=== PATIENT | female | born 1995 | race African-American/Black ===

== ENCOUNTER 2024-03-26 17:23 | Emergency (ER) | payer BC, SELFPAY ==
--- NOTE | ~2024-03-26 | CT_ITS ---
EXAMINATION: CT abdomen pelvis w con DATE: 03/26/2024 19:02 INDICATION: Abdominal pain. TECHNIQUE: Computed tomography (CT) of the abdomen and pelvis was performed with 100 mL Omnipaque 350 intravenous contrast. Automated exposure control and iterative reconstruction technique were employe d. The dose-length product was 839.50 mGy-cm. COMPARISON: None. FINDINGS: The visualized portions of lung bases demonstrate mild atelectasis in the left. No pleural effusion. The heart size is normal. No pericardial effusion. The liver, gallbladder, spleen, pancreas , and adrenal glands are normal. There is urothelial thickening and enhancement involving the ureters , consistent with pyelitis. There are no dilated loops of bowel. The appendix is normal. There are no pathologically enlarged lymph nodes. There is physiologic fluid in the pelvis. There is mild thoraci c and lumbar spondylosis. IMPRESSION: 1. Bilateral pyelitis. Reviewed, dictated and finalized at location A. IMPRESSION: 1. Bilateral pyelitis.
[2024-03-26 17:27] VITALS: BP 110/80; PULSE 80; RESP 16; TEMP 36.8; O2SAT 99
[2024-03-26 17:39] VITALS: BP 154/92; O2SAT 100
[2024-03-26 17:46] VITALS: BP 145/100; O2SAT 99
[2024-03-26 17:50] LABS: Add Urine Microscopic? YES; Appearance Urine Clear (Clear); Bacteria Urine 1+ /hpf; Bilirubin Urine Negative (Negative); Blood Urine Negative (Negative); Color Urine Yellow (Yellow); Glucose Urine UA Negative (Negative); Ketones Urine Negative (Negative); Leukocyte Esterase Ur 1+ LEU/UL (Negative); Nitrate Urine Negative (Negative); Non Pathogenic Casts 0-2; Protein Urine Negative (Negative); RBC Urine 0-2 /hpf (0-2); Specific Grav Ur 1.009 (1.001-1.035); Squamous Epithelial Cell Urine None Seen /hpf (Few)
[2024-03-26 18:01] VITALS: BP 146/88; O2SAT 100
[2024-03-26] MEDS: SODIUM CHLORIDE 0.9% IV 1,000 ML 150 ML IV CONT (18:08)
[2024-03-26 18:12] LABS: Basophils Percent Auto 0.4 % (0.2-1.2); Eosinophils Percent Auto 0.2 % (0-4.4); Hematocrit 37.7 % (37.0-47.0); Hemoglobin 13.3 g/dL (12.0-15.0); Immature Granulocyte Absolute 0.04 K/mm3 (0.00-0.031); Immature Granulocyte Percent A 0.4 % (0-0.5); Lymphocytes Absolute Auto 1.39 K/mm3 (0.9-3.2); Lymphocytes Percent Auto 12.7 % (18.3-44.2); Mean Corpuscular HGB Conc 35.3 g/dl (32-36); Mean Corpuscular Hemoglobin 31.6 pg (26-34); Mean Corpuscular Volume 89.5 fl (80-100); Mean Platelet Volume 10.8 fl (7.4-10.4); Monocytes Absolute Auto 1.3 K/mm3 (0.1-0.6); Monocytes Percent Auto 11.6 % (2.6-8.5); Neutrophils Absolute Auto 8.2 K/mm3 (1.3-6.7); Neutrophils Percent Auto 74.7 % (45.5-73.1); Platelet Count Result 228 k/mm3 (150-375); Red Blood Count 4.21 M/mm3 (4.2-5.4); Red Cell Distribution Width 12.2 % (11.5-14.5)
[2024-03-26 18:16] VITALS: BP 130/78; O2SAT 100
[2024-03-26 18:22] LABS: Alanine Aminotransferase 19 U/L (6-35); Albumin Level 4.3 g/dL (3.5-5.1); Alkaline Phosphatase 65 U/L (38-126); Anion Gap 10 mmol/L (4-12); Aspartate Amino Transferase 27 U/L (14-36); Bilirubin,Total 0.6 mg/dL (0.2-1.3); Blood Urea Nitrogen 7 mg/dL (7-17); Calcium 8.9 mg/dL (8.4-10.2); Carbon Dioxide 28 mmol/L (22-30); Chloride 97 mmol/L (98-107); Estimated CRCL calculation 110 ml/min; Estimated Glomerular Filt Rate > 60; Glucose 93 mg/dL (65-110); Lipase 51 U/L (23-300); Potassium 3.6 mmol/L (3.4-5.0); Sodium 135 mmol/L (137-145)
[2024-03-26 18:40] LABS: Beta HCG Quantitative < 2.39 mIU/ML
[2024-03-26 18:46] VITALS: BP 149/92; O2SAT 100
--- NOTE | 2024-03-26 19:21 | ED.ABDPAIN ---
HPI - Abdominal Pain General Chief Complaint: Abdominal Pain Stated Complaint: Lower abdominal pain Time Seen by Provider: 03/26/24 17:34 Source: patient Mode of arrival: ambulatory Limitations: no limitations History of Present Illness HPI narrative: 28-year-old otherwise healthy here with the complaints of lower abdominal pain which started this morning. She denies any nausea or vomiting. No history of fever or chills. Denies any urinary symptoms. Pertinent past history: none Onset (ago): day(s) (1) Pain Consistency: constant Location: diffuse Severity: moderate Quality: aching Radiation: none Exacerbating factors: nothing Relieving factors: nothing Related Data Patient : No Allergies Allergy/AdvReac Type Severity Reaction Status Date / Time ibuprofen Allergy Hives Verified 03/26/24 18:01 Review of Systems Review of Systems: All systems reviewed & are unremarkable except as noted in HPI and below Constitutional: Constitutional: Reports no additional constitutional complaints Eyes: Eyes: Reports no additional eye complaints ENT: Reports system reviewed and no additional complaints, except as documented Cardiovascular: Cardiovascular: Reports no additional cardiovascular complaints Respiratory: Respiratory: Reports no additional respiratory complaints Gastrointestinal: Gastrointestinal: Reports as per HPI Genitourinary: Genitourinary: Reports no additional female genitourinary complaints Musculoskeletal: Musculoskeletal: Reports no additional musculoskeletal complaints Exam Narrative: GENERAL: Well-appearing, well-nourished, and in no acute distress. HEAD: Normocephalic, atraumatic. EYES: PERRLA and EOMI. ENT: Nares clear, no rhinorrhea or epistaxis. Mucous membranes moist. NECK: Supple. CHEST: Clear to auscultation. No respiratory distress. HEART: Regular rate and rhythm. No murmur heard. Normal peripheral pulses. ABDOMEN: Soft, nontender, nondistended, normal active bowel sounds. EXTREMITIES: Normal range of motion. No edema. SKIN: Warm, dry, no rash. NEURO: No focal deficits. Alert and oriented x3. PSYCH: Normal mood and affect. Course Course Emergency Course: Patient is in no acute distress abdomen is soft no rebound did inform her about the lab work, CT findings advised to take antibiotic as prescribed. Vital Signs Vital signs: Vital Signs Temperature 36.8 C 03/26/24 17:27 Pulse Rate 80 03/26/24 17:27 Respiratory Rate 16 03/26/24 17:27 Blood Pressure 110/80 03/26/24 17:27 Pulse Oximetry 99 03/26/24 17:27 Oxygen Delivery Room Air 03/26/24 17:27 Temperature 36.8 C 03/26/24 17:27 Pulse Rate 80 03/26/24 17:27 Respiratory Rate 16 03/26/24 17:27 Blood Pressure 149/92 H 03/26/24 18:46 Pulse Oximetry 100 03/26/24 18:46 Oxygen Delivery Room Air 03/26/24 17:27 MDM - Abdominal Pain MDM Narrative Medical decision making narrative: 28-year-old otherwise healthy here with a lesion diffuse abdominal pain that started this morning denies urinary symptoms. Will do abdominal workup including CT. Differential Diagnosis Differential diagnosis: Likely abdominal pain, calculus of kidney, gastroenteritis and other (uti) Medical Records Attestation: I reviewed the patient's medical records. Lab Data Attestation: I reviewed the patient's lab results. 03/26/24 18:04 03/26/24 18:04 Labs: Lab Results 03/26/24 03/26/24 Range/Units 17:38 18:04 WBC 11.0 H (4.5-10.0) K/mm3 RBC 4.21 (4.2-5.4) M/mm3 Hgb 13.3 (12.0-15.0) g/dL Hct 37.7 (37.0-47.0) % MCV 89.5 (80-100) fl MCH 31.6 (26-34) pg MCHC 35.3 (32-36) g/dl RDW 12.2 (11.5-14.5) % Plt Count 228 (150-375) k/mm3 MPV 10.8 H (7.4-10.4) fl Immature Gran % (Auto) 0.4 (0-0.5) % Neut % (Auto) 74.7 H (45.5-73.1) % Lymph % (Auto) 12.7 L (18.3-44.2) % [place] % (Auto) 11.6 H (2.6-8.5) % Eos % (Auto) 0.2 (0-4.4) % B
== END 2024-03-26 19:42 | disposition home or self-care (01) ==
PROVIDERS: Emergency Provider Family Medicine
DX: N10 Acute pyelonephritis (principal)
CPT/HCPCS: 36415; 74177; 80053; 81001; 83690; 84702; 85025; 87077; 87086; 87088; 87186; 96360; 99284; J7030; Q9967